=== PATIENT | female | born 1960 | race Two or more races ===

== ENCOUNTER 2018-12-04 11:27 | Emergency (ER) | payer MEDICAID ==
[~2018-12-04] VITALS: Ht 165.1 cm; Wt 77.1 kg
[2018-12-04 11:50] VITALS: BP 175/81
--- NOTE | 2018-12-04 11:50 | NUR ---
ED Nurse Note: pt walked in to ED daughter due to sore throat. per pt, choking while eating bread this afternoon. able to talk and pulse oximetry above >94% in RA. AAO x4. respirations even and non-labored noted. skin warm to touch. no open wound noted. High bp noted. per pt, never been bp meds but pcp dignosed high blood pressure. denies headache or blurred vision. will wait for the further order.
--- NOTE | 2018-12-04 12:30 | NUR ---
HAND-OFF: Report given to CLARENCE Luna.
--- NOTE | 2018-12-04 12:40 | NUR ---
ED Nurse Note: wire technician on bedside
[2018-12-04 13:05] VITALS: BP 150/100
--- NOTE | 2018-12-04 13:08 | NUR ---
ED Nurse Note: ermd on bedside talking with pt regarding the plan of care, will continue to monitor.
[2018-12-04] MEDS ORDERED: PREDNISONE20 MG ORAL (13:14)
[2018-12-04] MEDS ORDERED: ALBUTEROL SULF8.5 GM INH (13:14)
--- NOTE | 2018-12-04 13:20 | Diagnostic Imaging Report ---
Indication: Dyspnea Comparison: 09/07/2011 A single view chest radiograph was obtained. Findings: Cardiomediastinal appearance is within normal limits for age. The lungs are clear. Pulmonary vascularity is appropriate. The diaphragmatic contour is smooth and costophrenic angles are sharp. No pleural effusions are identified. The bones are unremarkable. Impression: No acute findings
[2018-12-04] MEDS ORDERED: PRILOSEC OTC20 MG ORAL (13:21)
[2018-12-04 13:27] VITALS: BP 150/100
--- NOTE | 2018-12-04 13:27 | NUR ---
ER DISCHARGE NOTE: Patient is cleared to be discharged per ERMD, pt is aox4, on room air, with stable vital signs. pt was given dc and prescription instructions, pt was able to verbalize understanding, pt id band removed without complications. pt is able to ambulate with steady gait. pt took all belongings.
--- NOTE | 2018-12-04 21:29 | Emergency Room Report ---
History of Present Illness General Chief Complaint: General Complaint Source: Patient Present Illness Allergies: Coded Allergies: No Known Allergies (Unverified , 12/04/18) Patient History Now: No Nursing Documentation-PMH Past Medical History: No History, Except For Hx Hypertension: Yes Hx Gastrointestinal Problems: Yes - GERD Physical Exam Vital Signs Date Time Temp Pulse Resp B/P (MAP) Pulse Ox O2 Delivery O2 Flow Rate FiO2 12/04/18 11:40 98.2 88 20 179/89 (119) 98 Room Air Medical Decision Making Diagnostic Impression: Primary Impression: Bronchitis Last Vital Signs Date Time Temp Pulse Resp B/P (MAP) Pulse Ox O2 Delivery O2 Flow Rate FiO2 12/04/18 13:27 98.2 75 21 150/100 98 Room Air Status: improved Disposition: HOME, SELF-CARE Condition: Stable Scripts Omeprazole Magnesium (PRILOSEC OTC) 20 Mg Tablet.dr 20 MG ORAL DAILY, #30 TAB Prov: Esteban Webber MD 12/04/18 Albuterol Sulfate* (ALBUTEROL SULFATE MDI*) 8.5 Gm Hfa.aer.ad 2 PUFF INH Q6H, #1 EA 0 Refills Prov: Esteban Webber MD 12/04/18 Prednisone* (PREDNISONE*) 20 Mg Tablet 20 MG ORAL DAILY, #5 TAB Prov: Esteban Webber MD 12/04/18 Referrals: NON PHYSICIAN (PCP) Patient Instructions: Acute Bronchitis Esteban Webber MD December 04, 2018 21:28
--- NOTE | 2018-12-05 16:34 | Cardiology Report ---
APPROVED REPORT EKG Measurement Heart [id number] Normal sinus rhythm Normal ECG
== END 2018-12-04 13:27 | disposition home or self-care (01) ==
LOC: EMR 13:10
DX: J40 Bronchitis, not specified as acute or chronic (principal); I10 Essential (primary) hypertension; K21.9 Gastro-esophageal reflux disease without esophagitis
CPT/HCPCS: 71045; 93005; 99283